=== PATIENT | female | born 1995 ===

== ENCOUNTER 2016-09-25 17:41 | Emergency (ER) | payer OTHER ==
[2016-09-25] MEDS ORDERED: KETOROLAC TROMETHAMINE 30 MG/ML SOL IM ONE (18:08)
[2016-09-25 18:14] VITALS: O2SAT 100
[2016-09-25] MEDS ORDERED: KETOROLAC TROMETHAMINE 30 MG/ML SOL ONE (18:17)
[2016-09-25 19:19] VITALS: BP 99/61; PULSE 90; RESP 22; TEMP 98.2
== END 2016-09-25 19:26 | disposition home or self-care (01) ==
LOC: ED 17:41
DX: S29.012A Strain of muscle and tendon of back wall of thorax, initial encounter (principal); Y04.8XXA Assault by other bodily force, initial encounter
CPT/HCPCS: 71010; 72070; 99283 ×2; J1885; 96372